=== PATIENT | male | born 1955 | race Caucasian/White ===

== ENCOUNTER 2021-09-24 12:37 | Outpatient (CLI) | payer OTHER | END 2021-09-24 12:38 | disposition home or self-care (01) | LOC: TBSIIMAG 12:37 | PROVIDERS: ATTEND Neurological Surgery | DX: M54.50 Low back pain, unspecified (principal); M47.816 Spondylosis without myelopathy or radiculopathy, lumbar region | CPT/HCPCS: 72110 ==

== ENCOUNTER 2021-10-22 13:25 | Outpatient (CLI) | payer OTHER ==
[~2021-10-22 13:25] MED LIST: Magnevist 469MG/ML 20 ML VIAL ONE
== END 2021-10-22 13:26 | disposition home or self-care (01) ==
LOC: TBSIIMAG 13:25
PROVIDERS: ATTEND Neurological Surgery
DX: M47.26 Other spondylosis with radiculopathy, lumbar region (principal); Z98.890 Other specified postprocedural states
CPT/HCPCS: 72158; 82565

== ENCOUNTER 2025-09-01 04:02 | Inpatient (IN) | payer MEDICARE, BC ==
[2025-09-01 04:24] LABS: #Basophils 0.07 10x3/uL (0.0-0.2); #Eosinophils 0.27 10x3/uL (0.0-0.7); #Monocytes 0.87 10x3/uL (0.11-0.59); #Neutrophils 4.05 10x3/uL (1.40-6.50); %Basophils 1.2 % (0.0-1.0); %Eosinophils 4.7 % (0.0-10.0); %Lymphocytes 6.7 % (21.0-51.0); %Monocytes 15.3 % (0.0-10.0); %Neutrophils 71.2 % (42.0-75.0); Hematocrit 30.0 % (42.0-52.0); Hemoglobin 9.8 g/dL (14.0-18.0); Mean Corpuscular Hemoglobin 30.9 pg (27.0-31.0); Mean Corpuscular Volume 94.6 fL (78.0-98.0); Platelet Count 197 10x3/uL (130-400); Red Blood Cell (RBC) Count 3.17 mill/uL (4.70-6.10); White Blood Cell (WBC) Count 5.69 10x3/uL (4.8-10.8)
[2025-09-01 04:37] LABS: INR-International Normal Ratio 1.1; PTT 32.4 sec (22.9-36.1); Prothrombin Time 13.8 sec (12.0-14.7)
[2025-09-01 04:45] LABS: ALT (SGPT) Less than 7 U/L (Less than 45); AST (SGOT) 25 U/L (11-34); Albumin 3.5 g/dL (3.1-4.5); Alkaline Phosphatase 90 U/L (40-110); Anion Gap 17 mmol/L (10-20); BUN (Urea Nitrogen) 26 mg/dL (8.4-25.7); Bilirubin, Total 0.2 mg/dL (0.3-1.2); Calc. Creatinine Clearance 0 mL/min (70-130); Calcium 9.8 mg/dL (7.8-10.44); Carbon Dioxide 23 mmol/L (23-31); Chloride 108 mmol/L (98-107); Globulin 3.1 g/dL (2.4-3.5); Glucose 108 mg/dL (80-115); Magnesium 1.9 mg/dL (1.6-2.6); Potassium 4.5 mmol/L (3.5-5.1); Sodium 143 mmol/L (136-145)
[2025-09-01] MEDS ORDERED: Aspirin Chewable 81 MG TAB ONE (05:29)
[2025-09-01 06:58] VITALS: BMI 26.9
[2025-09-01] MEDS ORDERED: Senokot S 8.6-50 MG TAB PO PRN (08:58)
[2025-09-01] MEDS ORDERED: hydrALAZINE 20 MG/ML VIAL SLOW IVP PRN (08:58)
[2025-09-01] MEDS ORDERED: Acetaminophen 325 MG TAB PO PRN (08:58)
[2025-09-01] MEDS ORDERED: Electrolyte Replacement Protocol 1 EACH FS SCH (09:00)
[2025-09-01] MEDS ORDERED: Enoxaparin 40 MG (0.4 mL) SYRINGE ONE (10:52)
[2025-09-01] MEDS ORDERED: Magnesium 2 GM/50 ML BAG (IN WATER) ONE (10:52)
[2025-09-01] MEDS: Enoxaparin 40 MG (0.4 mL) SYRINGE SC SCH (11:09)
[2025-09-01] MEDS: Magnesium 2 GM/50 ML(in water) 2 GM in Premix 1 BAG IVPB SCH (11:10)
[2025-09-01] MEDS: Aspirin 81 mg Enteric Coated Tablet PO SCH (11:17)
[2025-09-01] MEDS ORDERED: Iopamidol-370 76% 500 ML MDV (1 ML CHARGE) ONE (13:11)
[2025-09-02 04:13] LABS: #Basophils 0.05 10x3/uL (0.0-0.2); #Eosinophils 0.29 10x3/uL (0.0-0.7); #Monocytes 0.72 10x3/uL (0.11-0.59); #Neutrophils 3.15 10x3/uL (1.40-6.50); %Basophils 1.1 % (0.0-1.0); %Eosinophils 6.4 % (0.0-10.0); %Lymphocytes 6.4 % (21.0-51.0); %Monocytes 15.9 % (0.0-10.0); %Neutrophils 69.5 % (42.0-75.0); Hematocrit 28.9 % (42.0-52.0); Hemoglobin 9.5 g/dL (14.0-18.0); Mean Corpuscular Hemoglobin 30.5 pg (27.0-31.0); Mean Corpuscular Volume 92.9 fL (78.0-98.0); Platelet Count 189 10x3/uL (130-400); Red Blood Cell (RBC) Count 3.11 mill/uL (4.70-6.10); White Blood Cell (WBC) Count 4.53 10x3/uL (4.8-10.8)
[2025-09-02 04:24] LABS: Anion Gap 14 mmol/L (10-20); BUN (Urea Nitrogen) 20 mg/dL (8.4-25.7); Calc. Creatinine Clearance 92 mL/min (70-130); Calcium 9.2 mg/dL (7.8-10.44); Carbon Dioxide 21 mmol/L (23-31); Cardiac Risk 3.2 (Less than 4.5); Chloride 108 mmol/L (98-107); Cholesterol 184 mg/dl (< 200 Desired); Glucose 103 mg/dL (80-115); HDL Cholesterol 58 mg/dL (>60 Neg Risk); LDL Cholesterol, Calculated 105 mg/dL; Magnesium 2.0 mg/dL (1.6-2.6); Potassium 4.3 mmol/L (3.5-5.1); Sodium 139 mmol/L (136-145); Triglycerides 106 mg/dL (Less than 150)
[2025-09-02] MEDS ORDERED: Propranolol 10 MG TAB PO PRN (08:35)
[2025-09-02] MEDS ORDERED: oxyCODONE 5 MG TAB PO PRN (08:54)
[2025-09-02] MEDS ORDERED: APALUTAMIDE 60 MG PO SCH (09:00)
[2025-09-02] MEDS ORDERED: Aspirin 81 mg Enteric Coated Tablet PO SCH (09:00)
[2025-09-02] MEDS: Valsartan 80 MG TAB PO SCH (09:25)
[2025-09-02] MEDS: Aspirin 81 mg Enteric Coated Tablet PO SCH (09:26)
[2025-09-02] MEDS: Pantoprazole 40 MG DR.TAB PO SCH (09:26)
[2025-09-02] MEDS: Cholecalciferol 1,000 UNITS (25 MCG) TAB PO SCH (09:26)
[2025-09-02] MEDS: Magnesium 2 GM/50 ML(in water) 2 GM in Premix 1 BAG IVPB SCH (09:27)
[2025-09-02 11:31] VITALS: BMI 26.6
[2025-09-02] MEDS: ERLEADA 60 MG PO SCH (12:18)
[2025-09-03 04:35] LABS: #Basophils 0.06 10x3/uL (0.0-0.2); #Eosinophils 0.23 10x3/uL (0.0-0.7); #Monocytes 0.78 10x3/uL (0.11-0.59); #Neutrophils 3.07 10x3/uL (1.40-6.50); %Basophils 1.3 % (0.0-1.0); %Eosinophils 5.1 % (0.0-10.0); %Lymphocytes 8.0 % (21.0-51.0); %Monocytes 17.3 % (0.0-10.0); %Neutrophils 67.9 % (42.0-75.0); Hematocrit 30.4 % (42.0-52.0); Hemoglobin 9.8 g/dL (14.0-18.0); Mean Corpuscular Hemoglobin 30.6 pg (27.0-31.0); Mean Corpuscular Volume 95.0 fL (78.0-98.0); Platelet Count 204 10x3/uL (130-400); Red Blood Cell (RBC) Count 3.20 mill/uL (4.70-6.10); White Blood Cell (WBC) Count 4.52 10x3/uL (4.8-10.8)
[2025-09-03 04:55] LABS: Anion Gap 13 mmol/L (10-20); BUN (Urea Nitrogen) 19 mg/dL (8.4-25.7); Calc. Creatinine Clearance 94 mL/min (70-130); Calcium 9.2 mg/dL (7.8-10.44); Carbon Dioxide 21 mmol/L (23-31); Chloride 108 mmol/L (98-107); Glucose 95 mg/dL (80-115); Potassium 3.8 mmol/L (3.5-5.1); Sodium 138 mmol/L (136-145)
[2025-09-03 13:17] VITALS: BP 151/97; TEMP 98.1
== END 2025-09-03 12:30 | disposition home health service (06) | DRG 65 ==
LOC: ERS 04:02 → ERHOLD 06:24 → 2SE 21:34 → OBSVTOIN 09-02 14:03
PROVIDERS: ADMIT Internal Medicine; ATTEND Hospitalist
DX: I63.89 Other cerebral infarction (principal); C78.02 Secondary malignant neoplasm of left lung; C79.31 Secondary malignant neoplasm of brain; G81.91 Hemiplegia, unspecified affecting right dominant side; D68.69 Other thrombophilia; R47.01 Aphasia; D63.0 Anemia in neoplastic disease; C61 Malignant neoplasm of prostate; I10 Essential (primary) hypertension; R29.703 NIHSS score 3; R29.707 NIHSS score 7; W19.XXXA Unspecified fall, initial encounter; Z98.890 Other specified postprocedural states; Z79.899 Other long term (current) drug therapy; Z90.89 Acquired absence of other organs; Z86.711 Personal history of pulmonary embolism; Z86.718 Personal history of other venous thrombosis and embolism; Z91.148 Patient's other noncompliance with medication regimen for other reason; Y92.009 Unspecified place in unspecified non-institutional (private) residence as the place of occurrence of the external cause
CPT/HCPCS: 36415; 36416; 70450; 70496; 70498; 70553; 71045; 71250; 76376; 80048; 80053; 80061; 83735; 83880; 84443; 84484; 85025; 85610; 85730; 93005; 93306; 94760; 96372; 96376; G0378; J1650; J3475; Q9967